=== PATIENT | male | born 1950 | race Caucasian/White ===

== ENCOUNTER → 2023-06-15 00:47 | Outpatient (CLI) | payer OTHER, SELFPAY ==
--- NOTE | 2023-06-15 10:15 | DI.RAD_ITS ---
Exam(s) XR CERVICAL SP JASMINE TRAUMA 2-3V EXAM: XR CERVICAL SP JASMINE TRAUMA 2-3V CLINICAL HISTORY: AUTH# [id number], CERVICALGIA M54.2. TECHNIQUE: 2D digital imaging was performed. COMPARISON: No exams were available for comparison FINDINGS: BONES: No fracture or destructive lesion. Vertebral bodies are unremarkable. DISKS: Intervertebral disc spaces are maintained. ALIGNMENT: Cervical spinal alignment is within normal limits. The odontoid and atlantoaxial articulat ions are normal. SOFT TISSUE: Atherosclerotic calcification is seen in the soft tissues of the neck bilaterally. The lung apices are clear. IMPRESSION: 1. Unremarkable radiographs of the cervical spine. 2. Atherosclerotic calcifications in the soft tissues bilaterally. DATA REPOSITORY: RADIATION DOSE DELIVERED:
--- NOTE | 2023-06-15 10:15 | DI.RAD_ITS ---
Exam(s) XR FOOT LT COMPLETE EXAM: XR FOOT LT COMPLETE CLINICAL HISTORY: AUTH# [id number], BILAT FEET PAIN. TECHNIQUE: 2D digital imaging was performed of the left foot. Three images were obtained. AP, obli que and lateral views were obtained. COMPARISON: No exams were available for comparison FINDINGS: BONES: No acute fracture is present. No bony destructive lesion is seen. There is a tiny plantar calc aneal spur. JOINTS: No dislocation present. There are mild degenerative changes at the interphalangeal joints of the toes. Hammertoes are present. SOFT TISSUE: Vascular calcifications are present. IMPRESSION: Mild arthrosis. DATA REPOSITORY: RADIATION DOSE DELIVERED:
--- NOTE | 2023-06-15 10:15 | DI.RAD_ITS ---
Exam(s) XR FOOT RT COMPLETE EXAM: XR FOOT RT COMPLETE CLINICAL HISTORY: AUTH# [id number], BILAT FEET PAIN. TECHNIQUE: 2D digital imaging was performed of the right foot. Three images were obtained. AP, obl ique and lateral views were obtained. COMPARISON: No exams were available for comparison FINDINGS: BONES: No acute fracture is present. No bony destructive lesion is seen. There are hammertoe deformit ies of the 3rd through 5th toes. JOINTS: No dislocation present. The joint spaces are well maintained. SOFT TISSUE: Vascular calcifications are present. IMPRESSION: No acute fracture or dislocation. DATA REPOSITORY: RADIATION DOSE DELIVERED:
== END ==
PROVIDERS: PCP Nurse Practitioner Family; Visit Provider Internal Medicine
DX: M79.672 Pain in left foot (principal); M79.671 Pain in right foot
CPT/HCPCS: 72040; 73630

== ENCOUNTER 2024-03-21 11:27 | Emergency (ER) | payer OTHER, SELFPAY ==
[2024-03-21 11:31] VITALS: BP 137/71; PULSE 83; RESP 18; TEMP 36.5; O2SAT 98
--- NOTE | 2024-03-21 11:39 | ED.GENADUL_ITS ---
Discharge Plan Disposition Patient Disposition: Home Discharge Details Clinical Impression: Cutaneous abscess of back excluding buttocks Primary Care Provider: Lev Mcintyre ED Provider: Osorio Salazar Home Meds and New Rx's Prescriptions: New sulfamethoxazole-trimethoprim [Bactrim DS] 800-160 mg tablet 1 tab PO BID 5 Days Qty: 10 0RF No Action metformin 500 mg tablet 500 mg PO BID atorvastatin 10 mg tablet 10 mg PO QHS sitagliptin 100 mg tablet 100 mg PO DAILY aspirin 81 mg capsule 81 mg PO DAILY insulin glargine [Basaglar KwikPen U-100 Insulin] 100 unit/mL (3 mL) insulin pen 4 unit subcut QAM insulin aspart U-100 [Novolog FlexPen U-100 Insulin] 100 unit/mL (3 mL) insulin pen 3 unit subcut DAILY Simbrinza 1-0.2 % drops,suspension 1 drp ophthalmic (eye) BID Rx Instructions: both eyes bid Vyzulta 0.024 % drops 1 drp ophthalmic (eye) QPM Discharge Instructions Instructions: Skin Abscess Additional Instructions: You are seen in the emergency department for your abscess which was drained at bedside. As we discussed you have a small loop drain that has been left in place. Please soak your abscess twice a day and warm water. If the loop drain becomes annoying please remove it at any time simply by untying or cutting it. Please also remove it after 4 days. There are no deeper attachments. If you develop fevers worsening pain please return to the emergency department. O therwise please take these antibiotics as directed. For your pain please take medications as follows: 1. Take acetaminophen (Tylenol), 1,000 mg (two 500 mg tabs) every 6 hours HPI General Date/Time Provider Initiated Documentation: 03/21/24 11:32 . HPI Narrative: MDM This is an overall very well-appearing normothermic and not tachycardic 73-year-old diabetic with a cutaneous back abscess which was successfully incisied and drained in the emergency department with a loop drain left in place for which patient will be discharged with empiric trial of expectant outpatient management. No pain out of proportion to suggest necrotizing soft tissue infection. No significant surrounding erythema to suggest cellulitis. Abscess was superficial and patient had no upper extremity neurological deficits so I was not suspicious of any deeper involvement of his spinal cord. No unintent ional weight loss night sweats or B symptoms to suggest malignancy. No fevers to suggest osteomyelitis. No rash to back to suggest zoster. Patient and I discussed care instructions for his loop drain. A photo was placed on his phone that he could show to his back home. I advised him to untie or cut his loop drain in 5 days, sooner if it became bothersome. We also discussed twice daily soaks as the patient reportedly did not have access to the bathtub. He is not on lisinopril so I discharged him with a short course of trimethoprim/sulfamethoxazole for 5 days. I advised him to return to the ED if he developed fevers weakness nausea or vomiting and could not tolerate his meds. He understood his return indications and was discharged with an empiric trial of expectant outpatient management. HPI This is a [id number] 73-year-old insulin-dependent diabetic male with an A1c of 8% arrived to the emergency department via private vehicle in the setting of a boil on his left upper back which he began noticing approximately 1 and half weeks ago. He has had similar boils in the past and has had to undergo I&D's. He is a marijuana smoker but denies routine tobacco and illicits. His has been treating his boil with twice daily hot washcloth compressions. This morning there was reportedly malodorous drainage. Patient has had no fevers nausea vomiting or shortness of breath. Denies any weakness or numbness in his bilateral upper extremities. Exam General: Well-appearing in no acute distress speaking in complete sentences. Head: Normocephalic, atraumatic. Eye: Extraocular eye movements intact. No conjunctival injection. No scleral icterus. Ear, nose, mouth, throat: Grossly normal inspection. Normal voice, handling secretions normally. Neck: Trachea midline. Cardiovascular: Well-perfused distal extremities. Respiratory: Nonlabored respiration. Back: Just left of midline on the upper thoracic back there is an approximately 3 x 3 cm indurated and fluctuant abscess. No significant surrounding erythema. Gastrointestinal: Nondistended abdomen. Musculoskeletal: No edema. Moving all 4 extremities spontaneously. Sensation motor function intact bilateral upper extremities across the radial, median and ulnar nerve distributions. Skin: Normal for age and race, grossly normal temperature and turgor. No acute rash. Neurologic: Alert and appropriate, no apparent acute deficits. Intact strength in hands bilaterally. Psychiatric: Mood and manner are appropriate. Grooming and personal hygiene are appropriate. Related Data Home Medications ?Medication ?Instructions ?Recorded ?Confirmed aspirin 81 mg capsule 81 mg PO DAILY 03/21/24 03/21/24 atorvastatin 10 mg tablet 10 mg PO QHS 03/21/24 03/21/24 brinzolamide 1 %-brimonidine 0.2 % 1 drp ophthalmic (eye) BID 03/21/24 03/21/24 eye drops,suspension (Simbrinza) insulin aspart U-100 100 unit/mL 3 unit subcut DAILY 03/21/24 03/21/24 (3 mL) subcutaneous pen (Novolog FlexPen U-100 Insulin aspart) insulin glargine 100 unit/mL (3 4 unit subcut QAM 03/21/24 03/21/24 mL) subcutaneous pen (Basaglar KwikPen U-100 Insulin) latanoprostene bunod 0.024 % eye 1 drp ophthalmic (eye) QPM 03/21/24 03/21/24 drops (Vyzulta) metformin 500 mg tablet 500 mg PO BID 03/21/24 03/21/24 sitagliptin 100 mg tablet 100 mg PO DAILY 03/21/24 03/21/24 sulfamethoxazole 800 1 tab PO BID 5 days #10 tabs 03/21/24 mg-trimethoprim 160 mg tablet (Bactrim DS) Previous Rx's ?Medication ?Instructions ?Recorded sulfamethoxazole 800 1 tab PO BID 5 days #10 tabs 03/21/24 mg-trimethoprim 160 mg tablet (Bactrim DS) Allergies Allergy/AdvReac Type Severity Reaction Status Date / Time No Known Allergies Allergy Unverified 03/21/24 11:35 General Stated Complaint: Cellulitis JOSE RAMON: 3 Course Vital Signs Vital signs: Vital Signs Temperature 36.5 C 03/21/24 11:31 Pulse 83 03/21/24 11:31 Respiratory Rate 18 03/21/24 11:31 Blood Pressure 137/71 03/21/24 11:31 Pulse Oximetry 98 03/21/24 11:31 Temperature 36.5 C 03/21/24 11:31 Pulse 83 03/21/24 11:31 Respiratory Rate 18 03/21/24 11:31 Respiratory Effort Normal, Non-Labored 03/21/24 11:36 Blood Pressure 137/71 03/21/24 11:31 Pulse Oximetry 98 03/21/24 11:31 Procedures Abscess I/D Site: Back Side (if applicable): Left Local Anesthetic: Lidocaine 1% and With Epi Amount of anesthesia used (mL): 5 Technique: Incised with #11 Blade Amount of fluid expressed (mL): 8 Irrigation: No Packing used?: Saravanan Drain (Loop drain placed) Medical Decision Making Quality:SDOH Health Related Social Needs: No Data to Display PFSH All Active Problems (Updated 03/21/24 @ 12:09 by Osorio Salazar MD) Cutaneous abscess of back excluding buttocks (Acute) Social History Smoking/Tobacco Use Status: Former Tobacco Use Smoking risk assessment performed?: Yes Alcohol Intake: current Alcohol Intake frequency: holidays/special occasions only Substance use type: does not use Housing: apartment Do you feel safe at home: Yes Do you feel safe in your relationship?: Yes POCUS Exam (ED) Limited Soft Tissue Exam DATE OF EXAM: 03/21/24 TIME OF EXAM: 12:38 PROVIDER THAT PERFORMED THE STUDY: Osorio Salazar IS THIS A REPEAT EXAM DURING THIS ENCOUNTER: No LOCATION OF EXAM: Upper back/left side REASON FOR EXAM: Abscess Exam Complete DIFFERENTIAL DIAGNOSES: Subcutaneous anechoic fluid collection with positive swirl sign consistent with abscess.
== END 2024-03-21 12:42 | disposition home or self-care (01) ==
PROVIDERS: Emergency Provider Emergency Medicine; PCP Nurse Practitioner Family
DX: L02.212 Cutaneous abscess of back [any part, except buttock and flank] (principal); E11.9 Type 2 diabetes mellitus without complications; Z79.82 Long term (current) use of aspirin; Z79.4 Long term (current) use of insulin; Z87.891 Personal history of nicotine dependence
CPT/HCPCS: 10061; 76604; 99284; 99283; J2004